=== PATIENT | female | born 1960 | race Caucasian/White ===

== ENCOUNTER 2017-10-07 12:05 | Emergency (ER) | payer BC, OTHER ==
--- NOTE | 2017-10-07 14:29 | EDM.PDOC ---
ED HPI GENERAL MEDICAL PROBLEM - General Chief Complaint: General Stated Complaint: RIGHT SHOULDER PAIN Time Seen by Provider: 10/07/17 13:00 Source of Information: Reports: Patient History Limitations: Reports: No Limitations - History of Present Illness INITIAL COMMENTS - FREE TEXT/NARRATIVE: PT ARRIVED WITH A NUMBER OF CONCERNS, sHE IS HAVING TROUBLE LIFTING HER RT ARM AND HAS PAIN IN THE SHOULDER. sHE HAS NOT HAD ANY RECENT INJURY. sHE DOES LIFT PALLETS ALL OF THE TIME. sHE HAS A RASH ON THE RT UPPER ABDOMAN THAT IS TENDER AND SHE HAS A SENSATION OF NUMBNESS AROUND THE RASH. sHE ALSO FEELS LIKE HER ABDOMAN IS BLOATED. Onset: Gradual Duration: Day(s): Location: Reports: Abdomen, Upper Extremity, Right Associated Symptoms: Reports: No Other Symptoms - Related Data Allergies Allergy/AdvReac Type Severity Reaction Status Date / Time No Known Allergies Allergy Verified 10/07/17 12:48 Home Meds: Home Meds NK [No Known Home Meds] 10/07/17 [History] Past Medical History Other Musculoskeletal History: L CLAVICLE FX - Past Surgical History GI Surgical History: Reports: Cholecystectomy Social & Family History - Tobacco Use Smoking Status *Q: Unknown Ever Smoked ED ROS GENERAL - Review of Systems Review Of Systems: See Below Constitutional: Reports: No Symptoms HEENT: Reports: No Symptoms Respiratory: Reports: No Symptoms Cardiovascular: Reports: No Symptoms Endocrine: Reports: No Symptoms GI/Abdominal: Reports: Other (PT FEELS LIKE HER ABDOMAN IS DISTENDED. ) : Reports: No Symptoms Musculoskeletal: Reports: Shoulder Pain Skin: Reports: Rash ED EXAM, GENERAL - Physical Exam Exam: See Below Free Text/Narrative:: pT ARRIVED WITH PAIN IN THE RT SHOULDER AND SHE HAS DIFFICULTY LIFTING THE ARM. + sHE FEELS LIKE HER ABDOMAN IS DISTENDED. sH HAS GAINED 15 OR 20 LBS. sHE HAS A RASH ON HER RT UPPER ABDOMAN. WHICH IS TENDER AND SHE HAS NUMBNESS AROUND IT. Exam Limited By: No Limitations General Appearance: Alert, Mild Distress Ears: Normal TMs Nose: Normal Inspection Throat/Mouth: Normal Inspection Head: Atraumatic Neck: Normal Inspection Respiratory/Chest: No Respiratory Distress Cardiovascular: Regular Rate, Rhythm GI/Abdominal: Soft, Non-Tender, Other (aBDOMAN DOES NOT FEEL TENSE. sHE HAS A RASH WHICH LOOKS LIKE A VIRAL RASH. iT IS TENDER AND IT THERE IS NUMBNESS AROUND IT. ) (Female) Exam: Deferred Rectal (Female) Exam: Deferred Back Exam: Normal Inspection Extremities: Normal Inspection Neurological: Alert, Oriented, Normal Cognition Psychiatric: Anxious Course - Vital Signs Last Recorded V/S: Last Vital Signs Temp 36.1 C 10/07/17 12:50 Pulse 63 10/07/17 12:50 Resp 12 10/07/17 12:50 BP 141/71 H 10/07/17 12:50 Pulse Ox 96 10/07/17 12:50 - Orders/Labs/Meds Labs: Laboratory Tests 10/07/17 10/07/17 10/07/17 Range/Units 14:25 14:26 14:26 WBC 4.4 L (4.5-11.0) K/uL RBC 4.85 (3.30-5.50) M/uL Hgb 14.4 (12.0-15.0) g/dL Hct 41.6 (36.0-48.0) % MCV 86 (80-98) fL MCH 30 (27-31) pg MCHC 35 (32-36) % Plt Count 234 (150-400) K/uL Neut % (Auto) 52 (36-66) % Lymph % (Auto) 37 (24-44) % [place] % (Auto) 9 H (2-6) % Eos % (Auto) 2 (2-4) % Baso % (Auto) 1 (0-1) % Sodium 142 (140-148) mmol/L Potassium 4.4 (3.6-5.2) mmol/L Chloride 107 (100-108) mmol/L Carbon Dioxide 27 (21-32) mmol/L Anion Gap 8.5 (5.0-14.0) mmol/L BUN 12 (7-18) mg/dL Creatinine 0.7 (0.6-1.0) mg/dL Est Cr Clr Drug Dosing 66.91 mL/min Estimated GFR (MDRD) > 60 (>60) Glucose 91 (74-106) mg/dL Calcium 9.0 (8.5-10.1) mg/dL Total Bilirubin 0.3 (0.2-1.0) mg/dL AST 19 (15-37) U/L ALT 27 (12-78) U/L Alkaline Phosphatase 85 (46-116) U/L C-Reactive Protein (0.0-0.3) mg/dL Total Protein 6.2 L (6.4-8.2) g/dL Albumin 3.4 (3.4-5.0) g/dL Globulin 2.8 (2.3-3.5) g/dL Albumin/Globulin Ratio 1.2 (1.2-2.2) TSH, Ultra Sensitive 1.355 (0.358-3.740) uIU/mL Urine Color Urine Appearance Urine pH (4.5-8.0) Ur Specific [place] (1.008-1.030) Urine Protein (NEGATIVE) mg/dL Urine Glucose (UA) (NEGATIVE) mg/dL Urine Ketones (NEGATIVE) mg/dL Urine Occult Blood (NEGATIVE) Urine Nitrite (NEGATIVE) Urine Bilirubin (NEGATIVE) Urine Urobilinogen (NORMAL) mg/dL Ur Leukocyte Esterase (NEGATIVE) Urine RBC (0-5) Urine WBC (0-5) Ur Epithelial Cells Amorphous Sediment Urine Bacteria Urine Mucus 10/07/17 10/07/17 Range/Units 14:26 15:12 WBC (4.5-11.0) K/uL RBC (3.30-5.50) M/uL Hgb (12.0-15.0) g/dL Hct (36.0-48.0) % MCV (80-98) fL MCH (27-31) pg MCHC (32-36) % Plt Count (150-400) K/uL Neut % (Auto) (36-66) % Lymph % (Auto) (24-44) % [place] % (Auto) (2-6) % Eos % (Auto) (2-4) % Baso % (Auto) (0-1) % Sodium (140-148) mmol/L Potassium (3.6-5.2) mmol/L Chloride (100-108) mmol/L Carbon Dioxide (21-32) mmol/L Anion Gap (5.0-14.0) mmol/L BUN (7-18) mg/dL Creatinine (0.6-1.0) mg/dL Est Cr Clr Drug Dosing mL/min Estimated GFR (MDRD) (>60) Glucose (74-106) mg/dL Calcium (8.5-10.1) mg/dL Total Bilirubin (0.2-1.0) mg/dL AST (15-37) U/L ALT (12-78) U/L Alkaline Phosphatase (46-116) U/L C-Reactive Protein 0.02 (0.0-0.3) mg/dL Total Protein (6.4-8.2) g/dL Albumin (3.4-5.0) g/dL Globulin (2.3-3.5) g/dL Albumin/Globulin Ratio (1.2-2.2) TSH, Ultra Sensitive (0.358-3.740) uIU/mL Urine Color Yellow Urine Appearance Clear Urine pH 7.0 (4.5-8.0) Ur Specific [place] 1.010 (1.008-1.030) Urine Protein Negative (NEGATIVE) mg/dL Urine Glucose (UA) Normal (NEGATIVE) mg/dL Urine Ketones Negative (NEGATIVE) mg/dL Urine Occult Blood Moderate (NEGATIVE) Urine Nitrite Negative (NEGATIVE) Urine Bilirubin Negative (NEGATIVE) Urine Urobilinogen Normal (NORMAL) mg/dL Ur Leukocyte Esterase Negative (NEGATIVE) Urine RBC 5-10 H (0-5) Urine WBC 0-5 (0-5) Ur Epithelial Cells Few Amorphous Sediment Not seen Urine Bacteria Few Urine Mucus Not seen - Re-Assessments/Exams Free Text/Narrative Re-Assessment/Exam: 10/07/17 16:06 SHOULDER XRAY SHOWED SOME MILD DEGENERATIVE CHANGES, aBDOMAN WAS UNREMARKABLE THYROID STUDT--TSH WAS NORMAL. hER WBC WAS NORMAL. Departure - Departure Time of Disposition: 16:03 Disposition: Home, Self-Care 01 Condition: Fair Clinical Impression: Rotator cuff disorder, Shingles rash - Discharge Information Referrals: Mitch Johnson MD [Primary Care Provider] - Forms: ED Department Discharge Care Plan Goals: REFERAL TO [facility] FOR POSSBLE ROTATOR CUFF TEAR, ZOVIRAX 2400MG TID FOR 5 DAYS, mOTRIN 600MG TID FOR SHOULDER PAIN.
--- NOTE | 2017-10-07 14:50 | CR ---
Shoulder Comp Rt INDICATION: painful shoulder, difficulty lifting the arm. FINDINGS: Minimal hypertrophic changes acromioclavicular and glenohumeral joints. Exam otherwise unre markable.
--- NOTE | 2017-10-07 14:57 | CR ---
Abdomen Series w Chest 1V INDICATION: distended abdoman. FINDINGS: Heart size normal. Lungs are clear. Surgical clips in the right upper quadrant. Normal alberta l gas pattern. No evidence for small bowel obstruction or free air.
== END 2017-10-07 16:14 | disposition home or self-care (01) ==
LOC: JP.ED 12:05 → MERGE 12:05 → JP.ED 16:14
DX: M75.101 Unspecified rotator cuff tear or rupture of right shoulder, not specified as traumatic (principal); B02.9 Zoster without complications
CPT/HCPCS: 36415; 73030-26-RT; 73030-RT; 74022; 74022-26; 80053; 81001; 84443; 85025; 86140; 99284

== ENCOUNTER 2018-04-02 23:56 | Emergency (ER) | payer BC ==
[2018-04-03] MEDS ORDERED: diphenhydrAMINE 50 MG/ML SDV IVPUSH ONE (00:27)
[2018-04-03] MEDS ORDERED: HYDROmorphone 0.5 MG/0.5 ML Syringe IVPUSH ONE (00:27)
--- NOTE | 2018-04-03 00:32 | EDM.PDOC ---
ED HPI GENERAL MEDICAL PROBLEM - General Chief Complaint: Gastrointestinal Problem Stated Complaint: ABD PAIN Time Seen by Provider: 04/03/18 00:20 Source of Information: Reports: Patient History Limitations: Reports: No Limitations - History of Present Illness INITIAL COMMENTS - FREE TEXT/NARRATIVE: 57-year-old female was in to see her primary care earlier today, was prescribed 800 mg ibuprofens and doxycycline and was told to take them after eating. Tonight after supper she took her first dose of ibuprofen and doxycycline, and shortly after started developing epigastric abdominal pain. For the last 2 hours she's had diffuse intense abdominal cramping radiating to her back and shoulders. She came in tearful, upset and in moderate distress. No fevers or chills. No shortness of breath or pleuritic pain. She says the symptoms feel a lot like the pain she had when she had her gallbladder removed 3 years ago. 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 Abdomen Pain Score (Numeric/FACES): 8 - Related Data Allergies Allergy/AdvReac Type Severity Reaction Status Date / Time No Known Allergies Allergy Verified 04/03/18 00:09 Home Meds: Home Meds Doxycycline Monohydrate 100 mg PO BID 04/03/18 [History] Ibuprofen 800 mg PO Q8HR 04/03/18 [History] guaiFENesin/Codeine Phosphate [Guaiatussin AC Liquid] 5 ml PO ASDIRECTED [History] Past Medical History Musculoskeletal History: Reports: Arthritis, Other (See Below) Other Musculoskeletal History: R shoulder pain - Infectious Disease History Infectious Disease History: Reports: Chicken Pox - Past Surgical History GI Surgical History: Reports: Cholecystectomy Social & Family History - Tobacco Use Smoking Status *Q: Current Every Day Smoker Years of Tobacco use: 30 Packs/Tins Daily: 0.5 Second Hand Smoke Exposure: Yes - Caffeine Use Caffeine Use: Reports: Coffee, Soda - Recreational Drug Use Recreational Drug Use: No ED ROS GENERAL - Review of Systems Review Of Systems: See Below Constitutional: Denies: Fever, Chills Respiratory: Denies: Shortness of Breath, Cough GI/Abdominal: Reports: Abdominal Pain, Nausea. Denies: Diarrhea, Vomiting : Reports: No Symptoms Musculoskeletal: Reports: Joint Pain (Diffuse arthritic pains) Skin: Reports: No Symptoms Neurological: Denies: Headache Psychiatric: Reports: No Symptoms ED EXAM, GI/ABD - Physical Exam Exam: See Below Exam Limited By: No Limitations General Appearance: Alert, Moderate Distress Eyes: Bilateral: Normal Appearance Head: Atraumatic Respiratory/Chest: No Respiratory Distress, Lungs Clear Cardiovascular: Regular Rate, Rhythm GI/Abdominal Exam: Rigid (Guarding fairly diffusely, will not allow me to palpate the abdomen. No focal area of tenderness.), Tender. No: Distended Neurological: Alert, Oriented Psychiatric: Anxious Skin Exam: Warm, Dry Course - Vital Signs Last Recorded V/S: Last Vital Signs Temp 97.8 F 04/03/18 00:05 Pulse 76 04/03/18 00:05 Resp 14 04/03/18 00:05 BP 144/84 H 04/03/18 00:05 Pulse Ox 95 04/03/18 00:05 - Orders/Labs/Meds Orders: Active Orders 24 hr Category Date Time Status Abdomen Pelvis w Cont [CT] Stat Exams 04/03/18 01:18 Taken Labs: Laboratory Tests 04/03/18 04/03/18 Range/Units 00:40 00:40 WBC 8.9 (4.5-11.0) K/uL RBC 5.13 (3.30-5.50) M/uL Hgb 15.7 H (12.0-15.0) g/dL Hct 42.9 (36.0-48.0) % MCV 84 (80-98) fL MCH 31 (27-31) pg MCHC 37 H (32-36) % Plt Count (150-400) K/uL Neut % (Auto) 66 (36-66) % Lymph % (Auto) 27 (24-44) % [place] % (Auto) 6 (2-6) % Eos % (Auto) 1 L (2-4) % Baso % (Auto) 0 (0-1) % Sodium 138 L (140-148) mmol/L Potassium 4.0 (3.6-5.2) mmol/L Chloride 102 (100-108) mmol/L Carbon Dioxide 26 (21-32) mmol/L Anion Gap 14.0 (5.0-14.0) mmol/L BUN 13 (7-18) mg/dL Creatinine 0.9 (0.6-1.0) mg/dL Est Cr Clr Drug Dosing 52.04 mL/min Estimated GFR (MDRD) > 60 (>60) Glucose 92 (74-106) mg/dL Calcium 9.1 (8.5-10.1) mg/dL Total Bilirubin 0.4 (0.2-1.0) mg/dL AST 185 H D (15-37) U/L ALT 93 H (12-78) U/L Alkaline Phosphatase 144 H (46-116) U/L Total Protein 7.0 (6.4-8.2) g/dL Albumin 3.5 (3.4-5.0) g/dL Globulin 3.5 (2.3-3.5) g/dL Albumin/Globulin Ratio 1.0 L (1.2-2.2) Lipase 439 H (73-393) U/L Meds: Medications Discontinued Medications Generic Name Dose Route Start Last Admin Trade Name Lucero PRN Reason Stop Dose Admin Diphenhydramine HCl 25 mg 04/03/18 00:27 04/03/18 00:48 Benadryl IVPUSH 04/03/18 00:28 25 mg ONETIME ONE Administration Hydromorphone HCl 0.5 mg 04/03/18 00:27 04/03/18 00:51 Dilaudid IVPUSH 04/03/18 00:28 0.5 mg ONETIME ONE Administration Sodium Chloride 100 mls @ 3 mls/sec 04/03/18 01:30 04/03/18 01:38 Normal Saline IV 3 mls/sec ASDIRECTED SHAWN Administration Iopamidol 100 ml 04/03/18 01:30 04/03/18 01:38 Isovue-300 (61%) IV 100 ml . DIRECTED SHAWN Administration - Re-Assessments/Exams Free Text/Narrative Re-Assessment/Exam: 04/03/18 00:31 An IV was started, the patient was given 0.5 mg of Dilaudid and 25 mg of IV Benadryl. CBC, CMP and lipase were obtained, intent is likely to do a CT of the abdomen unless pain resolves. 04/03/18 02:11 Shortly after the medications were given the patient calmed down and felt much better. Labs were reassuring other than mildly elevated LFTs, and lipase was slightly elevated so a CT with IV contrast was done which showed no evidence of pancreatitis. There was a slight thickening of the sigmoid colon wall which was equivocal. Patient was feeling much better so was discharged. She will return if pain recurs. Departure - Departure Time of Disposition: 02:27 Disposition: Home, Self-Care 01 Condition: Good Clinical Impression: Abdominal pain Qualifiers: Abdominal location: generalized Qualified Code(s): R10.84 - Generalized abdominal pain - Discharge Information Instructions: Abdominal Pain, Adult, [id number] Referrals: Mitch Johnson MD [Primary Care Provider] - Forms: ED Department Discharge Care Plan Goals: Consider acetaminophen for pain along with a lower dose of ibuprofen, and holding any further doses of doxycycline may be beneficial. Return in the next 24-48 hours if symptoms recur. - My Orders Last 24 Hours: My Active Orders 04/03/18 01:18 Abdomen Pelvis w Cont [CT] Stat - Assessment/Plan Last 24 Hours: My Active Orders 04/03/18 01:18 Abdomen Pelvis w Cont [CT] Stat
[2018-04-03] MEDS ORDERED: Iopamidol 612 MG/ML 100 ML Bottle IV SCH (01:30)
[2018-04-03] MEDS ORDERED: Sodium Chloride 0.9% 100 ML IV SCH (01:30)
== END 2018-04-03 02:29 | disposition home or self-care (01) ==
LOC: JP.ED 23:56
DX: R10.84 Generalized abdominal pain (principal); F17.210 Nicotine dependence, cigarettes, uncomplicated
CPT/HCPCS: 36415; 74177; 80053; 83690; 85025; 96374; 96375; 99284; J1170; J1200; J7030; Q9967

== ENCOUNTER 2019-05-30 15:35 | Emergency (ER) | payer BC, MEDICAID ==
[2019-05-30] MEDS ORDERED: Albuterol/Ipratropium 3.0-0.5 MG/3 ML Neb Soln NEB ONE (16:17)
--- NOTE | 2019-05-30 16:24 | EDM.PDOC ---
ED HPI GENERAL MEDICAL PROBLEM - General Chief Complaint: Respiratory Problem Stated Complaint: FEVER, SOB, COUGH, SINUS, LIGHT HEADED Time Seen by Provider: 05/30/19 15:58 Source of Information: Reports: Patient History Limitations: Reports: No Limitations - History of Present Illness INITIAL COMMENTS - FREE TEXT/NARRATIVE: 59 yo female presents to the ER with cough face pressure fever and SOB. 1 ppd smoker but has been unable to smoke last 2 days. has albuterol inhaler that brings short lived relief from cough and SOB. poor appetite. 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: Musculoskeletal History: Reports: Arthritis, Fibromyalgia, Osteoporosis, RA, Other (See Below) Other Musculoskeletal History: R shoulder pain - Infectious Disease History Infectious Disease History: Reports: Chicken Pox - Past Surgical History HEENT Surgical History: Reports: Tonsillectomy GI Surgical History: Reports: Cholecystectomy Social & Family History - Tobacco Use Smoking Status *Q: Current Every Day Smoker Years of Tobacco use: 35 Packs/Tins Daily: 1 Used Tobacco, but Quit: No Second Hand Smoke Exposure: Yes - Caffeine Use Caffeine Use: Reports: Coffee - Recreational Drug Use Recreational Drug Use: No ED ROS GENERAL - Review of Systems Review Of Systems: See Below Constitutional: Reports: Fever, Chills ED EXAM, GENERAL - Physical Exam Exam: See Below Exam Limited By: No Limitations General Appearance: Alert, WD/WN, No Apparent Distress Ears: Normal Canal, Hearing Grossly Normal, Normal TMs, Other (bilateral clear effusions) Nose: Normal Inspection, Normal Mucosa, No Blood Throat/Mouth: Normal Oropharynx, Normal Voice, No Airway Compromise Head: Atraumatic, Normocephalic Neck: Supple, Non-Tender, Full Range of Motion, Lymphadenopathy (R), Lymphadenopathy (L) Respiratory/Chest: No Respiratory Distress, Rhonchi. No: Crackles, Wheezing Cardiovascular: Normal Peripheral Pulses, Regular Rate, Rhythm, No Murmur GI/Abdominal: Normal Bowel Sounds, Soft, Non-Tender Neurological: Alert, Oriented Psychiatric: Normal Affect, Normal Mood Skin Exam: Warm, Dry, Intact Course - Vital Signs Last Recorded V/S: Last Vital Signs Temp 35.9 C 05/30/19 16:05 Pulse 74 05/30/19 16:05 Resp 16 05/30/19 16:05 BP 132/75 05/30/19 16:05 Pulse Ox 92 L 05/30/19 16:05 - Orders/Labs/Meds Orders: Active Orders 24 hr Category Date Time Status RT Aerosol Therapy [RC] ASDIRECTED Care 05/30/19 16:17 Active Meds: Medications Discontinued Medications Generic Name Dose Route Start Last Admin Trade Name Michaelq PRN Reason Stop Dose Admin Albuterol/Ipratropium 3 ml 05/30/19 16:17 05/30/19 16:23 Duoneb 3.0-0.5 Mg/3 Ml NEB 05/30/19 16:18 3 ml ONETIME ONE Administration - Re-Assessments/Exams Free Text/Narrative Re-Assessment/Exam: 05/30/19 17:08 preliminary review of chest x-ray does not show pneumonia. will refill her albuterol inhaler. tx with doxycycline 100 mg twice daily for 10 days and Robitussin AC as needed for cough Departure - Departure Time of Disposition: 17:09 Disposition: Home, Self-Care 01 Condition: Good Clinical Impression: Sinusitis Qualifiers: Sinusitis location: unspecified location Chronicity: acute Recurrence: non- recurrent Qualified Code(s): J01.90 - Acute sinusitis, unspecified Acute bronchiolitis Qualifiers: Bronchiolitis organism: unspecified organism Qualified Code(s): J21.9 - Acute bronchiolitis, unspecified - Discharge Information *PRESCRIPTION DRUG MONITORING PROGRAM REVIEWED*: Not Applicable *COPY OF PRESCRIPTION DRUG MONITORING REPORT IN PATIENT FRANCES: Not Applicable Instructions: Sinusitis, Adult, [id number] Referrals: PCP,None [Primary Care Provider] - Forms: ED Department Discharge Additional Instructions: increase fluid intake with goal of 1.5 liters per day doxycycline 100 mg twice dialy for 10 days use albuterol no more then 2 puffs every 4 hours cough syrup Robitussin AC as needed at night for cough. this medication is a narcotic do not drive or drink alcohol on this medication - My Orders Last 24 Hours: My Active Orders 05/30/19 16:17 RT Aerosol Therapy [RC] ASDIRECTED - Assessment/Plan Last 24 Hours: My Active Orders 05/30/19 16:17 RT Aerosol Therapy [RC] ASDIRECTED
--- NOTE | 2019-05-30 16:45 | CRLCR ---
HISTORY: Cough and shortness of breath. COMPARISON: None. FINDINGS: The lungs are clear. No evidence for pneumonia. Heart size and pulmonary vascularity within normal limits. No evidence for pulmonary edema. The bony thorax is intact. Dictated by Lynda Obando MD @ May 30 2019 4:43PM Signed by Dr. Lynda Obando @ May 30 2019 4:43PM
== END 2019-05-30 17:28 | disposition home or self-care (01) ==
LOC: JP.ED 15:35
DX: J21.9 Acute bronchiolitis, unspecified (principal); J01.90 Acute sinusitis, unspecified; F17.210 Nicotine dependence, cigarettes, uncomplicated
CPT/HCPCS: 71046; 94640; 99284-25; J7620-GY

== ENCOUNTER 2019-06-02 13:38 | Emergency (ER) | payer BC, MEDICAID ==
[2019-06-02] MEDS ORDERED: Albuterol/Ipratropium 3.0-0.5 MG/3 ML Neb Soln NEB ONE (14:16)
--- NOTE | 2019-06-02 14:19 | EDM.PDOC ---
ED HPI GENERAL MEDICAL PROBLEM - General Chief Complaint: Abdominal Pain Stated Complaint: ABD PAIN, COUGH, SOB Time Seen by Provider: 06/02/19 14:09 Source of Information: Reports: Patient, Family, Old Records, RN Notes Reviewed History Limitations: Reports: No Limitations - History of Present Illness INITIAL COMMENTS - FREE TEXT/NARRATIVE: 59-year-old female presents to emergency department today complaint of abdominal pain cramping. She states the pain is really developed over the last 24 hours she was recently diagnosed with bronchitis COPD exacerbation 3 days prior started on doxycycline for antibiotic. She states she takes the medication on an empty stomach which may be part of the problem. 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: Musculoskeletal History: Reports: Arthritis, Fibromyalgia, Osteoporosis, RA, Other (See Below) Other Musculoskeletal History: R shoulder pain Neurological History: Reports: Concussion, Headaches, Chronic - Infectious Disease History Infectious Disease History: Reports: Chicken Pox - Past Surgical History Head Surgeries/Procedures: Reports: None HEENT Surgical History: Reports: Tonsillectomy GI Surgical History: Reports: Cholecystectomy Neurological Surgical History: Reports: None Musculoskeletal Surgical History: Reports: None Dermatological Surgical History: Reports: None Social & Family History - Tobacco Use Smoking Status *Q: Current Every Day Smoker Years of Tobacco use: 30 Packs/Tins Daily: 0.5 Used Tobacco, but Quit: No - Caffeine Use Caffeine Use: Reports: Coffee, Tea - Recreational Drug Use Recreational Drug Use: No ED ROS GENERAL - Review of Systems Review Of Systems: See Below Constitutional: Denies: Fever, Chills HEENT: Reports: No Symptoms Respiratory: Reports: Shortness of Breath, Cough. Denies: Sputum Cardiovascular: Reports: No Symptoms GI/Abdominal: Reports: Abdominal Pain. Denies: Nausea, Vomiting : Reports: No Symptoms ED EXAM, GI/ABD - Physical Exam Exam: See Below Exam Limited By: No Limitations General Appearance: Alert, WD/WN, No Apparent Distress Respiratory/Chest: No Accessory Muscle Use, Rhonchi, Wheezing Cardiovascular: Regular Rate, Rhythm, No Murmur GI/Abdominal Exam: Soft, Non-Tender Course - Vital Signs Last Recorded V/S: Last Vital Signs Temp 98.5 F 06/02/19 13:56 Pulse 77 06/02/19 13:56 Resp 12 06/02/19 13:56 BP 141/64 H 06/02/19 13:56 Pulse Ox 94 L 06/02/19 13:56 - Orders/Labs/Meds Orders: Active Orders 24 hr Category Date Time Status RT Aerosol Therapy [RC] ASDIRECTED Care 06/02/19 14:16 Active Labs: Laboratory Tests 06/02/19 06/02/19 Range/Units 14:25 14:25 WBC 5.3 (4.5-11.0) K/uL RBC 4.79 (3.30-5.50) M/uL Hgb 14.1 (12.0-15.0) g/dL Hct 41.5 (36.0-48.0) % MCV 87 (80-98) fL MCH 29 (27-31) pg MCHC 34 (32-36) % Plt Count 333 (150-400) K/uL Neut % (Auto) 58 (36-66) % Lymph % (Auto) 35 (24-44) % [place] % (Auto) 6 (2-6) % Eos % (Auto) 1 L (2-4) % Baso % (Auto) 1 (0-1) % Sodium 140 (140-148) mmol/L Potassium 4.0 (3.6-5.2) mmol/L Chloride 103 (100-108) mmol/L Carbon Dioxide 30 (21-32) mmol/L Anion Gap 6.6 (5.0-14.0) mmol/L BUN 9 (7-18) mg/dL Creatinine 0.7 (0.6-1.0) mg/dL Est Cr Clr Drug Dosing 66.87 mL/min Estimated GFR (MDRD) > 60 (>60) Glucose 119 H (74-106) mg/dL Calcium 9.3 (8.5-10.1) mg/dL Total Bilirubin 0.4 (0.2-1.0) mg/dL AST 33 D (15-37) U/L ALT 46 (12-78) U/L Alkaline Phosphatase 143 H (46-116) U/L Total Protein 6.7 (6.4-8.2) g/dL Albumin 3.4 (3.4-5.0) g/dL Globulin 3.3 (2.3-3.5) g/dL Albumin/Globulin Ratio 1.0 L (1.2-2.2) Lipase 196 (73-393) U/L Meds: Medications Discontinued Medications Generic Name Dose Route Start Last Admin Trade Name Lucero PRN Reason Stop Dose Admin Albuterol/Ipratropium 3 ml 06/02/19 14:16 06/02/19 14:20 Duoneb 3.0-0.5 Mg/3 Ml NEB 06/02/19 14:17 3 ml ONETIME ONE Administration Departure - Departure Time of Disposition: 15:15 Disposition: Home, Self-Care 01 Condition: Fair Clinical Impression: Functional constipation - Discharge Information Instructions: Constipation, Adult Referrals: Mitch Johnson MD [Primary Care Provider] - Forms: ED Department Discharge Additional Instructions: Try the MiraLAX with the colonoscopy prep Please followup with your primary care provider in 3-5 days if not better, please call return to the emergency department with worsening of symptoms., - My Orders Last 24 Hours: My Active Orders 06/02/19 14:16 RT Aerosol Therapy [RC] ASDIRECTED - Assessment/Plan Last 24 Hours: My Active Orders 06/02/19 14:16 RT Aerosol Therapy [RC] ASDIRECTED Plan: Assessment Acuity = acute Site and laterality = functional constipation Etiology = slow transit time] Manifestations = abdominal pain Location of injury = Home Lab values = CBC, CMP, lipase within normal limits plain film the abdomen does show large amount stool Plan MiraLAX colonoscopy prep follow-up primary care 3-5 days if not better continue with the doxycycline take with small amount of This note was dictated using [employer] voice recognition software please call with any questions on syntax or grammar.
--- NOTE | 2019-06-02 14:47 | CRLCR ---
INDICATION: Pain TECHNIQUE: Abdomen 1 view. COMPARISON: 10/07/2017 FINDINGS: Bowel: Bowel pattern is normal. Diffuse, fecal retention. Soft tissues: No sign of free air. No sign of soft tissue mass. No suspicious calcifications. Bones: Unremarkable for age. IMPRESSION: Diffuse colonic fecal retention. Dictated by Mitch Mcginnis MD @ 06/02/2019 2:45:40 PM Dictated by: Mitch Mcginnis MD @ 06/02/2019 14:45:51 (Electronically Signed)
== END 2019-06-02 15:37 | disposition home or self-care (01) ==
LOC: JP.ED 13:38
DX: K59.04 Chronic idiopathic constipation (principal); F17.210 Nicotine dependence, cigarettes, uncomplicated; Z98.890 Other specified postprocedural states; Z90.49 Acquired absence of other specified parts of digestive tract
CPT/HCPCS: 36415; 74018; 80053; 83690; 85025; 94640; 99284-25; J7620-GY

== ENCOUNTER 2020-10-27 05:39 | Day surgery (SDC) | payer BC, MEDICAID, MEDICARE ==
[2020-10-27] MEDS ORDERED: Dextrose 5%-Lactated Ringers 1,000 ML IV SCH (06:00)
[2020-10-27] MEDS ORDERED: fentaNYL 100 MCG/2 ML SDV ONE (06:57)
[2020-10-27] MEDS ORDERED: Midazolam 1 MG/ML 2 ML SDV ONE (06:57)
[2020-10-27] MEDS ORDERED: Propofol 200 MG/20 ML SDV ONE ×2 (06:57→07:45)
[2020-10-27] MEDS ORDERED: Glycopyrrolate 0.2 MG/ML 2 ML SDV IVPUSH ONE (07:15)
[2020-10-27] MEDS ORDERED: Pantoprazole 40 MG Vial IVPUSH ONE (07:59)
--- NOTE | 2020-11-04 10:53 | OR ---
DATE OF PROCEDURE: 10/27/2020 SURGEON: Harvey Melchor MD PREOPERATIVE DIAGNOSES: 1. Diffuse mid and upper abdominal pain. 2. Family history of colon carcinoma. POSTOPERATIVE DIAGNOSES: 1. Diffuse mid and upper abdominal pain. 2. Family history of colon carcinoma. 3. Minimal hiatal hernia without significant inflammation at esophagogastric junction. 4. Erosive antral gastritis. 5. Single small polyp within descending colon (60 cm from dentate line). OPERATIVE PROCEDURES: 1. Esophagogastroduodenoscopy with: a. Biopsies of antrum for CLOtest. b. Biopsies of duodenum to rule out celiac disease. 2. Flexible colonoscopy with: a. Polypectomy at 60 cm from dentate line. b. Random colorectal biopsies to rule out microscopic colitis. ANESTHESIA: IV sedation. INDICATIONS FOR PROCEDURE: The patient presents with some more or less diffuse abdominal pain. This has what appeared to be component of some epigastric discomfort as well as mid and lower abdominal pain. She does also have a family history of colon carcinoma. Plan is to proceed with upper and lower endoscopy with biopsies and/or polypectomy as indicated. Potential risks including bleeding and perforation were discussed, and the patient wishes to proceed. DETAILS OF PROCEDURE: The patient was taken to the operating room and placed in a left lateral decubitus position. IV sedation was administered after which the upper GI endoscope was passed orally through the length of the esophagus into the stomach with retroflexion view of the fundus and thereafter through the pyloric channel into the junction of the third and fourth portions of the duodenum. Visualized hypopharynx, larynx, upper esophageal sphincter, and esophageal body were unremarkable. At the EG junction, the patient had a small hiatal hernia but without significant inflammation of esophagogastric junction. Within the stomach, there was small amount of retained bile. The most significant finding was that of some scattered erosions within the field of antral gastritis. No bleeding was seen and no true ulcers were identified. The pyloric channel and proximal duodenum were unremarkable. At this point, biopsies were obtained from the duodenum given the patient's somewhat nebulous abdominal pain to rule out celiac disease, and biopsies were obtained from the antrum and sent for CLOtest for H pylori. Minimal bleeding from the biopsy sites was seen, and the scope was then withdrawn. Upper endoscopic procedure was concluded. Attention was then taken to the colonoscopy. The initial digital rectal exam was performed and was unremarkable. Colonoscope was then passed into the rectum with retroflexion revealing uncomplicated hemorrhoidal columns. Scope was then eventually passed to the level of the cecum. The prep was fairly good with only small amount of liquid stool present. There was no area of diverticular disease, no areas of gross colitis. There was just one small polyp at 60 cm which was corresponding the descending colon. This was excised by means of the cautery snare technique and sent for histologic evaluation. Otherwise, as the scope had been withdrawn, random colorectal biopsies were obtained to rule out microscopic colitis. Minimal bleeding from both biopsy sites was seen, and the procedure was then concluded. The patient would be started on Protonix 40 mg IV in the recovery room. Apparently, she has been on Prilosec for reflux-type symptoms earlier. In addition to the IV Protonix, we will give her Protonix 40 mg daily, and she will be following up with Dr. Johnson in [facility] in 2 to 3 weeks. Harvey Melchor MD /[id number]
== END 2020-10-27 09:40 | disposition home or self-care (01) ==
LOC: JP.SDS 05:39
PROVIDERS: ATTEND Surgery
DX: Z12.11 Encounter for screening for malignant neoplasm of colon (principal); K25.9 Gastric ulcer, unspecified as acute or chronic, without hemorrhage or perforation; K44.9 Diaphragmatic hernia without obstruction or gangrene; K29.90 Gastroduodenitis, unspecified, without bleeding; D12.4 Benign neoplasm of descending colon; K64.9 Unspecified hemorrhoids; Z80.0 Family history of malignant neoplasm of digestive organs; K21.9 Gastro-esophageal reflux disease without esophagitis; F17.200 Nicotine dependence, unspecified, uncomplicated; J44.9 Chronic obstructive pulmonary disease, unspecified; Z86.010 Personal history of colon polyps; Z79.899 Other long term (current) drug therapy
CPT/HCPCS: 43239; 45380; 45385; 87081; 88305; C9113; J2250; J2704; J3010; J3490; J7121

== ENCOUNTER 2021-10-13 08:46 | Day surgery (SDC) | payer BC ==
[~2021-10-13 08:46] MED LIST: Midazolam 1 MG/ML 2 ML SDV ONE; Propofol 200 MG/20 ML SDV ONE; fentaNYL 100 MCG/2 ML SDV ONE
[2021-10-13] MEDS ORDERED: Sodium Chloride 0.9% 1,000 ML IV SCH (09:30)
== END 2021-10-13 11:30 | disposition home or self-care (01) ==
LOC: JP.SDS 08:46
PROVIDERS: ATTEND Surgery
DX: Z12.11 Encounter for screening for malignant neoplasm of colon (principal); K21.9 Gastro-esophageal reflux disease without esophagitis; K22.70 Barrett's esophagus without dysplasia
CPT/HCPCS: 43239; 45378; J2250; J2704; J3010; J7030; 88305